=== PATIENT | female | born 1995 | race Caucasian/White ===

== ENCOUNTER 2017-01-02 23:10 | Emergency (ER) | payer OTHER ==
[~2017-01-02] VITALS: Ht 157.5 cm; Wt 63.5 kg
[~2017-01-02 23:10] MED LIST: ALBU-136 IH
--- NOTE | 2017-01-02 23:15 | NUR ---
TO ER BED 3
--- NOTE | 2017-01-02 23:17 | NUR ---
EPatient being evaluated by physician at bedside.
[2017-01-02 23:19] VITALS: BP 119/73
[2017-01-02] MEDS ORDERED: ceFAZolin 1,000 MG VIAL IM ONE (23:20)
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
[2017-01-02] MEDS ORDERED: LIDOCAINE 1% ED 50 ML ONE (23:37)
--- NOTE | 2017-01-02 23:45 | NUR ---
CLEAN BURN SITE WITH NSS, APPLIED NEOMYCIN CREAM TO BURN SITE, WRAP WITH KERLIX.
[2017-01-02] MEDS ORDERED: NEOMYCIN/POLYMYXIN/BACITRACIN 0.9 GM/1 PKT TP ONE (23:51)
--- NOTE | 2017-01-02 23:58 | NUR ---
Patient discharged with v/s stable. Written and verbal after care instructions given and explained. Patient alert, oriented and verbalized understanding of instructions. Ambulatory with steady gait. All questions addressed prior to discharge. ID band removed. Patient advised to follow up with PMD. Rx of KEFLEX 500 MG given. Patient educated on indication of medication including possible reaction and side effects. Opportunity to ask questions provided and answered.
[2017-01-03 00:04] VITALS: BP 119/73
== END 2017-01-02 23:58 | disposition home or self-care (01) ==
LOC: MED 23:10
DX: T24.112A Burn of first degree of left thigh, initial encounter (principal); T22.111A Burn of first degree of right forearm, initial encounter; T31.0 Burns involving less than 10% of body surface
CPT/HCPCS: 16000; 90471; 90715; 96372; 99284; J0690; J2001